=== PATIENT | female | born 1985 | race Caucasian/White ===

== ENCOUNTER 2020-02-18 11:09 | Emergency (ER) | payer OTHER ==
[2020-02-18 11:20] VITALS: PULSE 87; TEMP 98.6; BMI 28.7
--- OUTSIDE RECORDS SUMMARY | 2020-02-18 11:37 | XMS ---
:1985 Author Organization [facility] Support Name Relationship Address Phone FENTON [employer] Unavailable [address] [phone] [place] [address] KAILASH HUDSON PARTNER [address] [phone] [place] [address] KAILASH HUDSON Unavailable [address] [place] [phone] Re-disclosure Warning The records that you are about to access may contain information from federally- assisted alcohol or drug abuse programs. If such information is present, then the following federally mandated warning applies: This information has been disclosed to you from records protected by federal confidentiality rules (42 CFR part 2). The federal rules prohibit you from making any further disclosure of this information unless further disclosure is expressly permitted by the written consent of the person to whom it pertains or as otherwise permitted by 42 CFR part 2. A general authorization for the release of medical or other information is NOT sufficient for this purpose. The Federal rules restrict any use of the information to criminally investigate or prosecute any alcohol or drug abuse patient.The records that you are about to access may contain highly sensitive health information, the redisclosure of which is protected by Article 27-F of the [place] State Public Health law. If you continue you may haveaccess to information: Regarding HIV / AIDS; Provided by facilities licensed or operated by the [facility] Office of Mental Health; or Provided by the [facility] Office for People With Developmental Disabilities. If such information is present, then the following [facility] mandated warning applies: This information has been disclosed to you from confidential records which are protected by state law. State law prohibits you from making any further disclosure of this information without the specific written consent of the person to whom it pertains, or as otherwise permitted by law. Any unauthorized further disclosure in violation of state law may result in a fine or halfway sentence or both. A general authorization for the release of medical or other information is NOT sufficient authorization for further disclosure. Family History Family Member Family Member Family Member Date of Description Data Source(s) Name Gender Status Status Unknown Male Diagnosis 2011 NEXTGEN ([facility] 12:00:00 AM [facility]) Unknown Male Diagnosis 2011 NEXTGEN ([facility] 12[facility]) Encounters Encounter Providers Location Date Indications Data Source(s ) [facility] 12[facility] [employer] [facility] 12:[facility] [employer] [employer] [facility]T [facility]) [facility] 10/[facility] 12:[facility] AM [facility] [employer] [facility]) Immunizations Vaccine Date Status Description Data Source(s) Misoprostol #4 (MAB) 10/29/2019 completed eCW2 ([facility] 05:04:00 PM EDT - [employer]) Mifepristone 10/29/2019 completed eCW2 ([facility]T - [employer]) Medications Medication Brand Start Product Dose Route Administrative Pharmacy [facility] Indications Reaction Description Data Name Date Form Instructions Instructions Source(s) 21 DAY NuvaRi 10/28/ active 1 ring leave eCW2 Ethinyl ng [address] (Hoda nned Estradiol 0.12-0 12:00: 3 weeks, [facility] 0.738620 .015 00 AM remove, and - H udson MG/HR / MG/24H EDT replace with Pe conic Etonogestre R a new ring In corporat l 0.005 after 7 day ed) MG/HR break Vaginal Ring [NuvaRing] NuvaRing 0.12-0.015 MG/24HR 21 DAY NuvaRi 1 ring leave eCW2 Ethinyl ng [address] (Hoda nned Estradiol 0.12-0 12:00: 3 weeks, Pa renthood 0.334504 .015 00 AM remove, and - H udson MG/HR / MG/24H EDT replace with Pe conic Etonogestre R a new ring In corporat l 0.005 after 7 day ed) MG/HR break Vaginal Ring [NuvaRing] NuvaRing 0.12-0.015 MG/24HR Insurance Providers Payer name Policy type Policy ID Covered Covered libertarian's Policy P matthew / Coverage libertarian ID relationship to [employer] ormation type serrano MARY [id number] ESSENTIAL PLAN 1 2 Surgeries/Procedures Procedure Description Date Indications Data Source(s) GONORRHEA, ZOHREH 11/14/2019 eCW2 ([facility] 12:00:00 AM EDT [facility]) US, POST AB only 11/14/2019 eCW2 ([facility] 12:00:00 AM EDT [facility]) CHLAMYDIA, ZOHREH 11/14/2019 eCW2 ([facility] 12:00:00 AM EDT [facility]) HEMOGLOBIN 10/29/2019 eCW2 ([facility] 12:00:00 AM EDT [facility]) Test 10/29/2019 eCW2 ([facility] 12:00:00 AM EDT [facility]) US transvaginal, 10/29/2019 eCW2 ([facility] ed uterus 12:00:00 AM EDT [facility]) Mifepristone, oral, 200 10/29/2019 eCW2 ([facility]anned mg 12:00:00 AM EDT [facility] - [facility]) Misoprostol, oral, 200 10/29/2019 eCW2 ([facility]anned mcg 12:00:00 AM EDT [facility] - [facility]) Results ID Date Data Source [id number] 02/12/2020 10:19:00 AM EDT [facility] Name Value Range Interpretation Code Description Data Flower rce(s) Supporting Document(s ) SARS-CoV-2 [facility] (COVID-19) This lab was ordered by [facility] and reported by [employer]. ID Date Data Source [id number] 11/21/2019 09:29:00 AM EDT [facility] Name Value Range Interpretation Code Description Data Flower rce(s) Supporting Document(s ) SARS-CoV-2 [facility] (COVID19) This lab was ordered by [facility] and reported by [facility]. ID Date Data Source Gonorrhea, ZOHREH.1 11/14/2019 12:00:00 AM EDT eCW2 ([facility]) Name Value Range Interpretation Description Data Source(s ) Supporting Code Document(s ) Negative Negative Neisseria eCW2 (Planned gonorrhoeae, Parenthood - [facility] [employer] [facility]) ID Date Data Source Chlamydia, ZOHREH.0 11/14/2019 12:00:00 AM EDT eCW2 ([facility] [employer] [facility]) Name Value Range Interpretation Description Data Source(s ) Supporting Code Document(s ) Negative Negative Chlamydia eCW2 ([facility]anned trachomatis, Parenthood - [facility] [employer]) ID Date Data Source [id number] 07/29/2019 12:00:00 AM EDT [facility] Name Value Range Interpretation Code Description Data Flower rce(s) Supporting Document(s ) 2019-nCoV [facility] RNA XXX ZOHREH+probe- Imp This lab was ordered by [facility] and reported by [employer]. Procedure Vital Signs ID Date Data Source UNK Name Value Range Interpretation Code Description Data Source(s) Diastolic blood 72 mm[Hg] 72 mm[Hg] eCW2 ([facility]oda nned pressure [facility] - [facility]) Systolic blood 119 mm[Hg] 119 mm[Hg] eCW2 (Plan radha pressure [facility] - [facility] [employer] [facility]) Body mass index 25.74 kg/m2 25.74 kg/m2 eCW2 (P lanned (BMI) [Ratio] [facility] - [facility] [employer] [facility]) Body weight 150 [lb_av] 150 [lb_av] eCW2 (Plann ed Measured [facility] - [facility] [employer] [facility]) Body height 64 [in_us] 64 [in_us] eCW2 ([facility] [employer] [facility]) Patient Treatment Plan of Care Planned Activity Planned Date Details Description Data Source (s) 21 DAY Ethinyl Estradiol 10/29/2019 12:00:00 eCW2 (Planned 0.448515 MG/HR / AM EDT [facility] - [facility] Etonogestrel 0.005 MG/HR [facility] [employer]) Vaginal Ring [NuvaRing]
[2020-02-18] MEDS ORDERED: SODIUM CHLORIDE 0.9% 500 ML INFUS.BAG IV ONE ×2 (11:44→13:57)
[2020-02-18] MEDS ORDERED: ACETAMINOPHEN 1000 MG/100 ML VIAL (NON FORMULARY) IVPB ONE (11:44)
[2020-02-18 12:11] LABS: BASO % 0.7 % (0-2.0); HEMATOCRIT 38.7 % (32.4-45.2); HEMOGLOBIN 12.8 GM/dL (10.7-15.3); MCH 29.8 pg (25.7-33.7); MCHC 33.1 g/dl (32.0-36.0); MEAN CELL VOLUME 90.2 fl (80-96); MEAN PLT VOLUME 10.4 fl (7.5-11.1); MONO % 4.6 % (3.8-10.2); NEUT % 62.7 % (42.8-82.8); PLATELET COUNT 189 K/MM3 (134-434); RBC 4.29 M/mm3 (3.60-5.2); RDW 14.4 % (11.6-15.6); WHITE BLOOD COUNT 6.8 K/mm3 (4.0-10.0)
[2020-02-18 12:37] LABS: POTASSIUM 3.7 mmol/L (3.5-5.1)
[2020-02-18 12:39] LABS: ALBUMIN 3.7 g/dl (3.4-5.0); CALCIUM 9.1 mg/dL (8.5-10.1)
[2020-02-18 12:42] LABS: CREATININE 0.6 mg/dL (0.55-1.3)
[2020-02-18 12:44] LABS: BILIRUBIN,TOTAL 0.2 mg/dL (0.2-1); TOT PROT 7.4 g/dl (6.4-8.2)
--- NOTE | 2020-02-18 13:44 | PDOC ---
History of Present Illness - General Chief Complaint: Headache Stated Complaint: DIZZINESS/ HEADACHE Time Seen by Provider: 02/18/20 11:40 - History of Present Illness Initial Comments: 02/18/20 13:38 34-year-old female without comorbidities presents for evaluation of headache x2 weeks with some lightheadedness and decreased appetite over the last few days. No nausea or vomiting no visual changes. Patient has taken nothing for her headaches. Past History - Medical History Allergies/Adverse Reactions: Allergies Allergy/AdvReac Type Severity Reaction Status Date / Time No Known Allergies Allergy Verified 02/18/20 12:19 CVA: No COPD: No CHF: No DVT: No - Reproductive History Is Patient Now?: No - Psycho-Social/Smoking History Smoking History: Never smoked Have you smoked in the past 12 months: No Information on smoking cessation initiated: No - Substance Abuse Hx (Audit-C & DAST Scrn) How often the patient has a drink containing alcohol: Never Score: In Men: 4 or > Positive; In Women: 3 or > Positive: 0 Screen Result (Pos requires Nsg. Audit-10AR): Negative In the last yr the pt used illegal drug/Rx for NonMed reason: No Score: Yes response is considered Positive: 0 Screen Result (Positive result requires Nsg. DAST-10): Negative Review of Systems - Review of Systems Constitutional: No: Fever ABD/GI: No: Nausea, Vomiting Neurological: Yes: Headache, Dizziness. No: Weakness *Physical Exam - Vital Signs Last Vital Signs Temp Pulse Resp BP Pulse Ox 98.6 F 87 17 96/44 L 100 02/18/20 11:18 02/18/20 11:18 02/18/20 11:18 02/18/20 11:18 02/18/20 11:18 - Physical Exam General Appearance: Yes: Nourished, Appropriately Dressed HEENT: positive: Symmetrical Neck: positive: Supple Respiratory/Chest: negative: Respiratory Distress Musculoskeletal: positive: Normal Inspection Extremity: positive: Normal Inspection Integumentary: positive: Normal Color, Dry, Warm. negative: Cyanotic Neurologic: positive: floor finisher helper II-XII NML intact, Fully Oriented, Alert, Normal Mood/Affect ED Treatment Course - LABORATORY CBC & Chemistry Diagram: 02/18/20 11:50 02/18/20 11:50 - ADDITIONAL ORDERS Additional order review: Laboratory Results 02/18/20 02/18/20 11:50 11:50 Sodium 141 Potassium 3.7 Chloride 106 Carbon Dioxide 30 Anion Gap 5 L BUN 8.0 Creatinine 0.6 Est GFR (CKD-EPI)AfAm 139.78 Est GFR (CKD-EPI)NonAf 120.61 Random Glucose 130 H Calcium 9.1 Total Bilirubin 0.2 AST 21 ALT 37 Alkaline Phosphatase 111 Total Protein 7.4 Albumin 3.7 Serum , Qual Negative 02/18/20 11:50 RBC 4.29 MCV 90.2 MCHC 33.1 RDW 14.4 MPV 10.4 Neutrophils % 62.7 Lymphocytes % 30.0 Monocytes % 4.6 Eosinophils % 2.0 Basophils % 0.7 - RADIOLOGY Radiology Studies Ordered: Category Date Time Status HEAD CT WITHOUT CONTRAST [CT] Stat CT Scan 02/18/20 11:44 Completed - Medications Given in the ED: ED Medications Discontinued Medications Generic Name Dose Route Start Last Admin Trade Name Freq PRN Reason Stop Dose Admin Acetaminophen 1,000 mg 02/18/20 11:44 02/18/20 12:03 Ofirmev Injection - IVPB 02/18/20 11:45 1,000 mg ONCE ONE Administration Sodium Chloride 1,000 ml 02/18/20 11:44 02/18/20 12:03 Normal Saline - IV 02/18/20 11:45 1,000 ml ONCE ONE Administration Medical Decision Making - Medical Decision Making 02/18/20 13:39 Patient's headache relieved after IV Ofirmev. Dizziness relieved after IV fluids. I suspect patient had a headache she did not take any medications. She states on multiple occasions she did not take any medications for headache which lasted about 2 weeks dizziness resolved after a liter of fluid. CAT scan negative for any acute pathology. New onset headache. Most likely tension. Patient vital signs will be rechecked prior to discharge. I suspect she was not hydrating herself which caused some hypovolemia and further exacerbated her headache. 02/18/20 15:15 Patient now tells me she was treated for anxiety on bupropion. She is feeling better after her second liter of fluids and and is now normotensive. She states she has not been keeping herself hydrated. I instructed her on proper hydration making sure her urine is clear at least once a day. She is in agreement with the plan. I have reviewed the pathophysiology with the patient. They are in agreement with the treatment plan all questions were answered to their satisfaction. Understanding for follow-up without fail was also conveyed to the patient. Again they are in agreement. Discharge - Discharge Information Problems reviewed: Yes Clinical Impression/Diagnosis: Headache, Dizziness, Anxiety Condition: Stable Disposition: HOME - Admission No - Follow up/Referral Referrals: Omayra Sky [Primary Care Provider] - Thong Quiles MD [Non Staff, Medical] - - Patient Discharge Instructions Additional Instructions: Without fail follow-up with neurology in 1 to 2 days for further evaluation and treatment options. Maintain proper hydration and make sure urine is clear at least once a day. Return to the emergency room for further issues at any time. Continue your regular medication as directed. - Post Discharge Activity
[2020-02-18 15:13] VITALS: BP 118/78
== END 2020-02-18 15:19 | disposition home or self-care (01) ==
LOC: JERFT 11:09
PROC: 3E033NZ Introduction of Analgesics, Hypnotics, Sedatives into Peripheral Vein, Percutaneous Approach (ICD-10-PCS; principal; 2020-02-18)
DX: R51.9 Headache, unspecified (principal); R42 Dizziness and giddiness; F41.9 Anxiety disorder, unspecified
CPT/HCPCS: 36415; 70450-TC; 80053; 84703; 85025; 99284-25; J0131